=== PATIENT | female | born 1930 | race Caucasian/White ===

== ENCOUNTER 2019-01-21 15:33 | Inpatient (IN) ==
[2019-01-21] MEDS ORDERED: SODIUM CHLORIDE 0.9% 500 ML IV STA (16:02)
[2019-01-21] MEDS ORDERED: ONDANSETRON 4 MG/2 ML VIAL IV STA (16:02)
[2019-01-21] MEDS ORDERED: ALBUTEROL/IPRATROPIUM 3 ML NEB RESP TX STA ×2 (16:02→17:54)
[2019-01-21 17:21] LABS: Basophils # 0.1 10*3/uL (0.0-0.2); Basophils % 0.2 % (0.0-0.8); Hemoglobin 10.3 GM/DL (12.0-16.0); Immature Granulocytes Absolute 0.56 #; Lymphocytes # 1.7 10*3/uL (1.4-4.0); Mean Corpuscular HGB Conc 32.2 GM/DL (32-36); Mean Corpuscular Volume 86.7 FL (87-102); Monocytes % 5.6 % (1.7-12.7); Neutrophils % 86.2 % (38.7-73.9); Platelet Count 389 T/CUMM (130-400); Red Blood Count 3.69 MC/CUMM (3.8-5.5); Red Cell Distribution Width 13.1 % (9.3-17.3); White Blood Count 28.6 T/CUMM (4-12)
[2019-01-21 17:29] LABS: INR 1.1; PT Patient Result 12.4 SECS; Partial Thromboplastin Time 25.9 SECS (0-40)
[2019-01-21 17:32] LABS: Alanine Aminotransferase 25 U/L (13-56); Albumin 1.7 G/DL (3.4-5.0); Alkaline Phosphatase 140 U/L (45-117); Amylase 15 U/L (25-115); Aspartate Amino Transferase 29 U/L (0-37); Blood Urea Nitrogen 14 MG/DL (7-18); Calcium 8.6 MG/DL (8.5-10.1); Glucose 146 MG/DL (74-106); Osmolality,Calculated 278.7 MOS/KG (273-304); Total Protein 6.6 G/DL (6.4-8.3); Troponin I < 0.015 NG/ML (0.00-0.045)
[2019-01-21 17:37] LABS: Apearance,Urine CLOUDY (Clear); Bacteria,Urine Many /HPF (Few); Bilirubin,Urine Negative (Negative); Blood, Urine Small mg/dL (Negative); Glucose,Urine (UA) Negative (Negative); Hyaline Casts,Urine 9 /LPF (0-3); Ketones,Urine Negative (Negative); Mucus,Urine Occasional /LPF (Occasional); Nitrite,Urine Positive (Negative); Protein,Urine 30 MG/DL; Squamous Epithelial Cell,Urine Occasional /HPF (0-10); WBC,Urine 120 /HPF (0-6)
[2019-01-21 17:46] LABS: Urine Color Yellow (Yellow)
[2019-01-21] MEDS ORDERED: LEVOFLOXACIN INJ 750 MG in PREMIX 1 EACH IV STA (17:48)
[2019-01-21 17:52] LABS: RBC,Urine 10 /HPF (0-4)
[2019-01-21] MEDS ORDERED: PIPERACILLIN/TAZOBACTAM 3,375 MG in SODIUM CHLORIDE 0.9% 100 ML IV STA (17:52)
[2019-01-21] MEDS ORDERED: GLUCAGON 1 MG VIAL IM PRN (18:13)
[2019-01-21] MEDS ORDERED: DEXTROSE 50% 25 GM/50 ML VIAL IV PRN (18:13)
[2019-01-21 19:28] LABS: Lymphocytes 5 % (20-55); Segmented Neutrophils 92 % (50-85)
[2019-01-21 19:29] LABS: Hypersegmented Neutrophil Few
[2019-01-21 19:30] LABS: Anisocytosis 2+; Microcytosis 1+
[2019-01-21 19:31] LABS: Polychromasia Slight; Spherocytes Few
[2019-01-21 19:32] LABS: Platelet Estimate Normal
[2019-01-21 19:33] LABS: Total Cells Counted 100
[2019-01-21] MEDS: ENOXAPARIN 40 MG/0.4 ML SYRINGE SUBCUT SCH (21:23)
[2019-01-22] MEDS: ALBUTEROL/IPRATROPIUM 3 ML NEB RESP TX SCH ×4 (01:01→19:00)
[2019-01-22] MEDS: ACETAMINOPHEN 325 MG TABLET PO PRN (02:31)
[2019-01-22] MEDS: PIPERACILLIN/TAZOBACTAM 3,375 MG in SODIUM CHLORIDE 0.9% 100 ML IV SCH ×3 (05:01→20:32)
[2019-01-22 07:17] LABS: Basophils % 0.1 % (0.0-0.8); Eosinophils % 0.1 % (0.00-10.9); Hematocrit 27.5 VOL% (35.7-47.0); Hemoglobin 9.2 GM/DL (12.0-16.0); Immature Granulocytes % 2.6 %; Immature Granulocytes Absolute 0.58 #; Lymphocytes # 0.9 10*3/uL (1.4-4.0); Mean Corpuscular HGB Conc 33.5 GM/DL (32-36); Mean Corpuscular Volume 84.6 FL (87-102); Mean Platelet Volume 9.8 FL (9.6-12.0); Monocytes % 5.2 % (1.7-12.7); Platelet Count 339 T/CUMM (130-400); Red Blood Count 3.25 MC/CUMM (3.8-5.5); White Blood Count 22.3 T/CUMM (4-12)
[2019-01-22 07:39] LABS: Band Neutrophils 13 % (0-10); Lymphocytes 4 % (20-55); Platelet Estimate Normal; Segmented Neutrophils 80 % (50-85); Total Cells Counted 100
[2019-01-22 07:40] LABS: Anisocytosis Slight
[2019-01-22 07:41] LABS: Hypersegmented Neutrophil Few
[2019-01-22 07:51] LABS: Calcium 8.6 MG/DL (8.5-10.1); Osmolality,Calculated 274.7 MOS/KG (273-304)
[2019-01-22] MEDS ORDERED: [UNRECOGNIZED DRUG - OTHER] PO SCH (09:00)
[2019-01-22] MEDS: amLODIPine 5 MG TABLET PO SCH (09:33)
[2019-01-22] MEDS: PANTOPRAZOLE 40 MG TABLET PO SCH (09:33)
[2019-01-22] MEDS: POTASSIUM CHLORIDE 20 MEQ TABLET PO PRN ×4 (09:33→17:48)
[2019-01-22] MEDS: SERTRALINE 25 MG TABLET PO SCH (09:33)
[2019-01-22] MEDS ORDERED: ZIPRASIDONE 20 MG/1 ML VIAL IM PRN (09:33)
[2019-01-22] MEDS: LEVOFLOXACIN INJ 750 MG in PREMIX 1 EACH IV SCH (17:47)
[2019-01-22] MEDS: CLORAZEPATE 3.75 MG TABLET PO SCH (20:30)
[2019-01-22] MEDS: traZODone 50 MG TABLET PO SCH (20:30)
[2019-01-22] MEDS: ENOXAPARIN 40 MG/0.4 ML SYRINGE SUBCUT SCH (20:31)
[2019-01-22] MEDS: DONEPEZIL 10 MG TABLET PO SCH (20:31)
[2019-01-22] MEDS: ONDANSETRON 4 MG/2 ML VIAL IV PRN (21:52)
[2019-01-23] MEDS: ALBUTEROL/IPRATROPIUM 3 ML NEB RESP TX SCH ×4 (01:37→19:25)
[2019-01-23 05:22] LABS: Basophils # 0.1 10*3/uL (0.0-0.2); Basophils % 0.3 % (0.0-0.8); Eosinophils % 0.1 % (0.00-10.9); Hemoglobin 10.1 GM/DL (12.0-16.0); Immature Granulocytes Absolute 0.88 #; Lymphocytes # 0.9 10*3/uL (1.4-4.0); Lymphocytes % 5.3 % (21.3-54.2); Mean Corpuscular HGB Conc 32.6 GM/DL (32-36); Mean Corpuscular Volume 85.9 FL (87-102); Monocytes % 5.9 % (1.7-12.7); Neutrophils % 83.4 % (38.7-73.9); Platelet Count 444 T/CUMM (130-400); Red Blood Count 3.61 MC/CUMM (3.8-5.5); Red Cell Distribution Width 13.1 % (9.3-17.3); White Blood Count 17.7 T/CUMM (4-12)
[2019-01-23] MEDS: PIPERACILLIN/TAZOBACTAM 3,375 MG in SODIUM CHLORIDE 0.9% 100 ML IV SCH ×3 (05:26→20:27)
[2019-01-23 06:05] LABS: Calcium 9.2 MG/DL (8.5-10.1); Osmolality,Calculated 275.5 MOS/KG (273-304)
[2019-01-23 06:22] LABS: Anisocytosis 1+; Band Neutrophils 1 % (0-10); Hypochromasia Slight; Lymphocytes 9 % (20-55); Microcytosis Slight; Myelocytes 2 %; Segmented Neutrophils 87 % (50-85); Total Cells Counted 100
[2019-01-23 06:23] LABS: Atypical Lymphocytes Few; Platelet Estimate Increased
[2019-01-23] MEDS: LEVOTHYROXINE 75 MCG TABLET PO SCH (06:24)
[2019-01-23] MEDS ORDERED: MAGNESIUM SULF RIDER 2 GM in PREMIX 1 EACH IV PRN (07:07)
[2019-01-23] MEDS ORDERED: MAGNESIUM SULF RIDER 4 GM in PREMIX 1 EACH IV PRN (07:07)
[2019-01-23] MEDS: PANTOPRAZOLE 40 MG TABLET PO SCH (08:52)
[2019-01-23] MEDS: SERTRALINE 25 MG TABLET PO SCH (08:52)
[2019-01-23] MEDS: CLORAZEPATE 3.75 MG TABLET PO SCH ×2 (08:52→20:25)
[2019-01-23] MEDS: amLODIPine 5 MG TABLET PO SCH (08:53)
[2019-01-23] MEDS: ONDANSETRON 4 MG/2 ML VIAL IV PRN (09:08)
[2019-01-23] MEDS: LACTULOSE 20 GM/30 ML UDCUP PO PRN ×2 (11:02→17:41)
[2019-01-23] MEDS: MEGESTROL 400 MG/10 ML UDCUP PO SCH (16:18)
[2019-01-23] MEDS: LEVOFLOXACIN INJ 750 MG in PREMIX 1 EACH IV SCH (17:40)
[2019-01-23] MEDS ORDERED: SODIUM PHOSPHATE ENEMA 133 ML BOTTLE RECTAL ONE (18:36)
[2019-01-23] MEDS: ENOXAPARIN 40 MG/0.4 ML SYRINGE SUBCUT SCH (20:25)
[2019-01-23] MEDS: DONEPEZIL 10 MG TABLET PO SCH (20:25)
[2019-01-23] MEDS: traZODone 50 MG TABLET PO SCH (20:27)
[2019-01-24] MEDS: ALBUTEROL/IPRATROPIUM 3 ML NEB RESP TX SCH ×4 (01:40→19:25)
[2019-01-24] MEDS: PIPERACILLIN/TAZOBACTAM 3,375 MG in SODIUM CHLORIDE 0.9% 100 ML IV SCH ×3 (05:29→20:34)
[2019-01-24] MEDS: LEVOTHYROXINE 75 MCG TABLET PO SCH (06:11)
[2019-01-24 07:13] LABS: Calcium 9.4 MG/DL (8.5-10.1); Osmolality,Calculated 282.3 MOS/KG (273-304)
[2019-01-24 07:18] LABS: Basophils # 0.1 10*3/uL (0.0-0.2); Basophils % 0.4 % (0.0-0.8); Eosinophils % 0.1 % (0.00-10.9); Hematocrit 33.4 VOL% (35.7-47.0); Hemoglobin 10.6 GM/DL (12.0-16.0); Immature Granulocytes Absolute 0.54 #; Lymphocytes # 0.8 10*3/uL (1.4-4.0); Lymphocytes % 5.9 % (21.3-54.2); Mean Corpuscular HGB Conc 31.7 GM/DL (32-36); Mean Corpuscular Volume 86.5 FL (87-102); Mean Platelet Volume 9.4 FL (9.6-12.0); Neutrophils % 83.6 % (38.7-73.9); Platelet Count 502 T/CUMM (130-400); Red Blood Count 3.86 MC/CUMM (3.8-5.5); Red Cell Distribution Width 13.2 % (9.3-17.3); White Blood Count 13.5 T/CUMM (4-12)
[2019-01-24 08:50] LABS: Band Neutrophils 1 % (0-10); Hypochromasia 1+; Lymphocytes 4 % (20-55); Platelet Estimate Increased; Segmented Neutrophils 91 % (50-85); Total Cells Counted 100
[2019-01-24] MEDS: SERTRALINE 25 MG TABLET PO SCH (09:24)
[2019-01-24] MEDS: CLORAZEPATE 3.75 MG TABLET PO SCH ×2 (09:24→20:35)
[2019-01-24] MEDS: PANTOPRAZOLE 40 MG TABLET PO SCH (09:24)
[2019-01-24] MEDS: POTASSIUM CHLORIDE 20 MEQ TABLET PO PRN ×4 (09:24→17:25)
[2019-01-24] MEDS: amLODIPine 5 MG TABLET PO SCH (09:24)
[2019-01-24] MEDS: MEGESTROL 400 MG/10 ML UDCUP PO SCH (10:27)
[2019-01-24] MEDS: ACETAMINOPHEN 325 MG TABLET PO PRN (13:13)
[2019-01-24] MEDS: LEVOFLOXACIN INJ 750 MG in PREMIX 1 EACH IV SCH (17:35)
[2019-01-24] MEDS: traZODone 50 MG TABLET PO SCH (20:35)
[2019-01-24] MEDS: DONEPEZIL 10 MG TABLET PO SCH (20:35)
[2019-01-24] MEDS: ENOXAPARIN 40 MG/0.4 ML SYRINGE SUBCUT SCH (20:35)
[2019-01-25] MEDS: ALBUTEROL/IPRATROPIUM 3 ML NEB RESP TX SCH ×3 (01:00→13:28)
[2019-01-25] MEDS: ACETAMINOPHEN 325 MG TABLET PO PRN ×2 (02:49→07:47)
[2019-01-25] MEDS: PIPERACILLIN/TAZOBACTAM 3,375 MG in SODIUM CHLORIDE 0.9% 100 ML IV SCH ×2 (05:14→14:16)
[2019-01-25 05:36] LABS: Basophils # 0.1 10*3/uL (0.0-0.2); Basophils % 0.4 % (0.0-0.8); Eosinophils % 0.3 % (0.00-10.9); Hematocrit 30.5 VOL% (35.7-47.0); Hemoglobin 9.8 GM/DL (12.0-16.0); Immature Granulocytes % 3.4 %; Immature Granulocytes Absolute 0.46 #; Lymphocytes # 1.2 10*3/uL (1.4-4.0); Lymphocytes % 8.6 % (21.3-54.2); Mean Corpuscular HGB Conc 32.1 GM/DL (32-36); Mean Corpuscular Volume 86.4 FL (87-102); Mean Platelet Volume 9.2 FL (9.6-12.0); Monocytes % 6.5 % (1.7-12.7); Neutrophils % 80.8 % (38.7-73.9); Platelet Count 466 T/CUMM (130-400); Red Blood Count 3.53 MC/CUMM (3.8-5.5); Red Cell Distribution Width 13.2 % (9.3-17.3); White Blood Count 13.6 T/CUMM (4-12)
[2019-01-25 06:03] LABS: Calcium 9.1 MG/DL (8.5-10.1); Osmolality,Calculated 274.7 MOS/KG (273-304)
[2019-01-25] MEDS: MEGESTROL 400 MG/10 ML UDCUP PO SCH (09:07)
[2019-01-25] MEDS: LEVOTHYROXINE 75 MCG TABLET PO SCH (09:07)
[2019-01-25] MEDS: CLORAZEPATE 3.75 MG TABLET PO SCH (09:07)
[2019-01-25] MEDS: SERTRALINE 25 MG TABLET PO SCH (09:08)
[2019-01-25] MEDS: PANTOPRAZOLE 40 MG TABLET PO SCH (09:08)
[2019-01-25] MEDS: amLODIPine 5 MG TABLET PO SCH (09:08)
[2019-01-25] MEDS ORDERED: fentaNYL 12 MCG/HR PATCH TRANSDERM SCH (12:08)
[2019-01-25] MEDS ORDERED: LORazepam 2 MG/1 ML VIAL IV ONE (12:09)
[2019-01-25 16:15] VITALS: BP 162/57
[2019-01-25] MEDS: LEVOFLOXACIN INJ 750 MG in PREMIX 1 EACH IV SCH (18:42)
== END 2019-01-25 19:44 | disposition hospice, home (50) | DRG 193 ==
LOC: EDUNIT# → EDBD → N.ED 15:33 → SUATTDRO 18:13 → N.EDINP 18:13 → N.2E 19:14
PROVIDERS: ADMIT Internal Medicine Nephrology; ATTEND Internal Medicine